=== PATIENT | female | born 1965 | race Caucasian/White ===

== ENCOUNTER 2018-03-01 19:38 | Emergency (ER) | payer MEDICAID ==
[~2018-03-01] VITALS: Ht 188 cm; Wt 90.7 kg
[~2018-03-01 19:38] MED LIST: GLUMETZA500 M1 PO; LISINOPRIL2.5 M1 PO; MEDROLDOSEPACK PO; ONE TOUCH LANC1 EACH MC; ONE TOUCH VERI EAC MC; ONE TOUCH VERI1 EACH MC; TRIAMCINOLONE A80 G2 TOP; VENLAFAXIN75 MG/1 T2 PO; VISTARIL 25 MG25 M1 PO
[2018-03-01 20:05] LABS: ABSOLUTE EOSINOPHILS 0.1 thou/uL (0.0-0.7); ABSOLUTE LYMPHOCYTES 1.6 thou/uL (0.8-5.3); ABSOLUTE MONOCYTES 0.6 thou/uL (0.0-1.2); ABSOLUTE NEUTROPHILS 5.1 thou/uL (1.6-8.1); BASOPHILS 0.6 %; EOSINOPHILS 1.4 %; HEMATOCRIT 38.5 % (37.0-47.0); HEMOGLOBIN 12.8 gm/dL (12.0-15.0); LYMPHOCYTES 21.6 %; MCHC 33.4 g/dL (28.0-37.0); MCV 89.7 fL (80.0-100.0); MONOCYTES 8.1 %; MPV 7.7 fl. (7.2-11.1); NUCLEATED RBCS 0 /100WBC; PLATELET COUNT* 232 thou/uL (150-400); POLYS 68.3 %; RBC 4.29 mil/uL (4.20-5.00); RDW-CV 13.1 % (10.5-14.5); WBC 7.4 thou/uL (4.0-11.0)
[2018-03-01 20:08] LABS: CALCIUM 9.4 mg/dL (8.5-10.1); CREATININE 0.6 mg/dL (0.6-1.3); POTASSIUM 3.8 mmol/L (3.5-5.1)
[2018-03-01] MEDS ORDERED: CARAFATE1 GM PO (20:49)
[2018-03-01] MEDS ORDERED: PEPCID20 MG PO (20:49)
[2018-03-01 21:33] VITALS: BP 133/84
== END 2018-03-01 21:37 | disposition home or self-care (01) ==
LOC: M.ERS 19:38
PROVIDERS: Emergency Medicine
DX: T18.128A Food in esophagus causing other injury, initial encounter (principal); I10 Essential (primary) hypertension; E11.9 Type 2 diabetes mellitus without complications; Z88.0 Allergy status to penicillin; X58.XXXA Exposure to other specified factors, initial encounter; Y93.89 Activity, other specified; Y92.89 Other specified places as the place of occurrence of the external cause; Y99.8 Other external cause status

== ENCOUNTER 2018-12-10 13:28 | Emergency (ER) | payer MEDICAID ==
[~2018-12-10] VITALS: Ht 188 cm; Wt 90.7 kg
[~2018-12-10 13:28] MED LIST changes: +CARAFATE1 GM PO; +PEPCID20 MG PO
[2018-12-10] MEDS ORDERED: LANTUS100 UNIT/M SUBQ (13:41)
[2018-12-10] MEDS ORDERED: KEFLEX500 M1 PO (14:35)
[2018-12-10 14:49] VITALS: BP 132/48
== END 2018-12-10 14:50 | disposition home or self-care (01) ==
LOC: M.ERS 13:28
DX: S90.122A Contusion of left lesser toe(s) without damage to nail, initial encounter (principal); E11.9 Type 2 diabetes mellitus without complications; I10 Essential (primary) hypertension; Z90.710 Acquired absence of both cervix and uterus; Z88.0 Allergy status to penicillin; X58.XXXA Exposure to other specified factors, initial encounter; Y93.89 Activity, other specified; Y92.89 Other specified places as the place of occurrence of the external cause; Y99.8 Other external cause status